=== PATIENT | female | born 1975 | race Caucasian/White ===

== ENCOUNTER 2018-08-30 13:55 | Emergency (ER) | payer SELFPAY ==
--- NOTE | 2018-08-30 14:48 | EDPHY ---
General Time Seen by Provider: 08/30/18 14:15 Narrative: CLINICAL IMPRESSION: Concussion following closed head injury, cervical strain ASSESSMENT/PLAN: 43-year-old otherwise healthy female presents to the emergency department with complaints of headache, confusion, neck pain, and amnesia following a closed head injury while snowboarding today. Accident was witnessed by her who reports she was traveling at a relatively high rate of speed towards the lift line, caught an edge, fell backwards directly onto her helmeted head, knocked the wind out of herself. She has had perseveration since the accident, continues to be confused, with amnesia to events before and after the accident and complains of headache. I did feel this patient had indications for CT head and C-spine however she has refused at this time. My recommendations for CT were reviewed with the patient and her . I had a long discussion with her regarding concussion, post concussive syndrome and 2nd impact syndrome. They were given plenty of time to ask questions. They prefer to be discharged home, monitor symptoms at home, follow-up with primary care, however I encouraged them to have a very low threshold for return to ED for worsening symptoms that were outlined in person and discharge papers. Patient has no clinical signs basilar skull fracture including raccoon eyes, hemotympanum, Castro sign. 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 No reported dizziness or vertigo, exam findings are otherwise reassuring. DIFFERENTIAL DX: Differential diagnosis for headache includes but not limited to concussion, post concussive syndrome, intracranial hemorrhage, subarachnoid hemorrhage, migraine headache, migraine varient headache, tension headache and infectious causes such as meningitis, pharyngitis and sinusitis. ED PROCEDURES: See lab and/or imaging results below CT head and c-spine recommended for the following indications: Patient with antegrade and retrograde posttraumatic amnesia AND and one of the followin. Headache 2. Short-term memory deficits (unable to tell me month, what happened with the trauma or how she got to hospital) 3. Dangerous mechanism of injury - high speed snowboarding crash with headache and neck pain. ED COURSE: 2:45 p.m.: I had a long discussion with the patient and her regarding CT indications given her mechanism of injury, the fact that she has headache, posttraumatic antegrade and retrograde amnesia,, and she has declined CT at this point. They prefer to go home, monitor symptoms, follow up with primary care, and will return for worsening symptoms that were detailed in person and discharge papers. Patient verbalizes understanding that I am unable to rule out intracranial hemorrhage, skull fracture and C-spine fracture without imaging. I did discuss in detail with her symptoms consistent with concussion as well as post concussive syndrome and 2nd impact syndromes. CHIEF COMPLAINT: Closed head injury HPI: 43-year-old female presents to the emergency department with her from [facility] where she was apparently riding a snowboard towards the lift line when she caught an edge and fell back flat on her back striking her head. She was helmeted. Her was behind her and witness the fall. He states she was going at a relatively fast rate of speed when she fell. She knocked the wind out of her. She did not have loss of consciousness but has been perseverating, repeating questions since the fall, and seems very confused. She is complaining of a headache. She cannot tell me what happened earlier in the day and does not remember the fall nor does she remember the trip to the hospital. No reports of dizziness, vertigo, acute vision or hearing change, tinnitus, or vomiting. She has some neck pain as well but no reports of upper extremity numbness, tingling or weakness. No history of recent closed head injury or prior TBI. She is not anticoagulated. No prior neck injury or surgery. She did not take anything for her symptoms prior to arrival PAST MEDICAL HISTORY: None reported See nurse/triage notes for additional history if applicable Pertinent Past Surgical History: None reported Family History: Noncontributory Social History: Otherwise healthy, , lives with her who is here with her REVIEW OF SYSTEMS: All other systems negative Constitutional: No fever, no chills, appetite change. Eyes: No discharge, vision change ENT: No sore throat, congestion, ear pain. Cardiovascular: No chest pain, no palpitations. Respiratory: No cough, no shortness of breath. Gastrointestinal: No abdominal pain, no vomiting, diarrhea. Musculoskeletal: No back pain, joint swelling, joint pain, myalgias. Skin: No rashes, color change. Neurological: Positive for headache, denies dizziness, weakness. PHYSICAL EXAM: General Appearance: Alert, oriented, appropriate, cooperative, perseverating, asking repetitive questions regarding the accident, tearful, VSS, no hypoxia. HEENT: TMs are clear bilaterally no perforation or FB, no injection, no evidence of serous or mucopurulent otitis. No hemotympanum or Castro sign Oropharynx clear is no erythema or exudates, no tonsillar hypertrophy or asymmetry. No clear rhinorrhea Dentition without abnormality. No malocclusion no palpable scalp defect or contusion Eyes: PERRLA, no acute vision change, nystagmus, swelling, discharge, pain or photosensitivity. Conjunctiva pink, no pallor or injection Neck: Supple, no lymphadenopathy, no midline pain, FROM, reproducible pain primarily to bilateral paraspinal regions radiating to bilateral trapezius, no meningismus. Respiratory: There are no retractions, lungs are clear to auscultation. No chest wall tenderness or rib pain Cardiac: Regular rate and rhythm, no murmurs or gallops. Gastrointestinal: Abdomen is soft, nontender, bowel sounds normal, no masses/ hernia, no rigidity, guarding or focal peritoneal findings. Neurological: Alert and oriented x 2, unable to tell me the correct month or year,, CN 2-12 grossly intact, normal gait no ataxia, DTR's intact, normal sensation and strength Skin: Warm, dry, no rashes, no nodules on palpation. Musculoskeletal: Extremities are symmetrical, full range of motion, no tenderness, deformity, swelling, or erythema. MEDICAL DECISION MAKING: Patient was seen independently. Secondary supervising physician at time of evaluation was Dr. Gayle . Diagnosis: Severe concussion, closed-head injury. New, requires workup Summary: See Assessment and Plan for summary of ED visit Independent visualization of images, tracing, or specimens: Patient refused imaging. Decision to obtain medical records or history from someone other than the patient: Patient's Review / Summarize previous medical records: None available Patient Progress: Stable. - History Smoking Status: Never smoked - Objective Vital Signs: Initial Vital Signs Temperature (C) 36.9 C 08/30/18 14:06 Heart Rate 80 08/30/18 14:06 Respiratory Rate 18 08/30/18 14:06 Blood Pressure 144/89 H 08/30/18 14:06 O2 Sat (%) 96 08/30/18 14:06 O2 Delivery Mode Room Air Allergies/Adverse Reactions: No Known Allergies Allergy (Unverified 08/30/18 14:08) Home Medications: Medication Instructions Recorded Vit27&Calcium/Iron/FA 1 each PO DAILY 08/29/12 [ Rx 1 Tablet (RX)] Medications Given: Discontinued Medications Acetaminophen (Tylenol) 1,000 mg PO EDNOW ONE Stop: 08/30/18 14:53 Last Admin: 08/30/18 15:22 Dose: 1,000 mg Departure - Departure Disposition: Home, Routine, Self-Care Clinical Impression: Concussion, Perseveration, Cervical muscle strain Condition: Fair Instructions: Concussion (ED), Post Concussion Syndrome (ED) Additional Instructions: DISCHARGE INSTRUCTIONS FROM YOUR DOCTOR Thank you for visiting our emergency department today. Please keep in mind that discharge from the emergency department does not mean that there is nothing wrong - it simply means that we have not identified an emergency condition that requires further evaluation or treatment in the hospital. You should always plan to follow up with primary care for re-evaluation of your condition in the next 2-3 days. If you have been referred to a specialist, please call as soon as possible (today or tomorrow) to schedule your follow up appointment at the appropriate time. [ YOU ARE BEING DIAGNOSED WITH A CONCUSSION. PLEASE FOLLOWUP WITH A PRIMARY CARE DOCTOR IN 24-48 HOURS. IF YOU DO NOT HAVE A PRIMARY CARE, A REFERRAL WAS GIVEN TONIGHT. PLEASE AVOID TV, COMPUTERS, TEXTING, VIDEO GAMES, SCREEN TIME AND CONTACT SPORTS UNTIL YOU ARE CLEARED BY A PRIMARY CARE. WE HAVE ALSO INCLUDED OUR GRADUAL RETURN TO PLAY PROTOCOL A GUIDELINE BUT DEFINITIVE RETURN TO ABOVE MENTIONED ACTIVITIES SHOULD COME FROM YOUR PCP. RETURN TO THE ER SOONER FOR WORSENING OR SEVERE HEADACHES, SEIZURES, ALTERED MENTAL STATUS, VOMITING, SEVERE GRADUAL ALAGSO-FR-IOEN PROTOCOL PATIENT MUST BE SYMPTOM FREE FOR 24 HOURS BEFORE PROGRESSING TO THE NEXT STEP. IF PATIENT HAS SYMPTOMS DURING STEP'S 2-6, STOP ACTIVITY AND RETURN PREVIOUS STEP. PATIENT CAN NOT PROGRESS TO NEXT STEP UNLESS CURRENT STEP CAN BE COMPLETED WITH OUT ANY SYMPTOMS (IE HEADACHE, DIZZINESS, CONFUSION...) BRIGHT LIGHTS, TV, COMPUTERS, IPAD'S, MUSIC, READING CAN TRIGGER OR WORSEN CONCUSSION SYMPTOMS THUS SHOULD BE AVOIDED OR USED IN MODERATION. NO CONTACT SPORTS UNTIL YOU ARE CLEARED BY YOUR PRIMARY CARE PHYSICIAN. STEP 1. NO SAME DAY RETURN TO PLAY, REST ONLY , DO NOT PROCEED TO STEP 2 UNTIL ALL SYMPTOMS HAVE RESOLVED STEP 2. LIGHT AEROBIC EXERCISE (IE WALKING, SWIMMING OR STATIONARY CYCLING), WHILE KEEPING INTENSITY < 70% MAX HEART RATE STEP 3. SPORT-SPECIFIC EXERCISE (IE SKATING DRILLS IN ICE HOCKEY-NO PASSING, RUNNING DRILLS IN SOCCER-NO PASSING), NO HEAD IMPACT ACTIVITIES STEP 4. NON-CONTACT TRAINING, WITH PROGRESSION TO MORE COMPLEX DRILLS (IE PASSING DRILLS) NO HEAD IMPACT ACTIVITIES STEP 5. FULL-CONTACT PRACTICE AFTER GETTING MEDICAL CLEARANCE STEP 6. RETURN TO GAME PLAY THIS WAS BASED FROM: CONSENSUS STATEMENT ON CONCUSSION IN SPORT: THE 4TH INTERNATIONAL CONFERENCE ON CONCUSSION IN SPORT [facility]. [place] J SPORTS MED. 2013;47(5):250- [phone] People present with illnesses and injuries in different ways, and it is always possible that we have missed something. You may always return for re-evaluation if symptoms worsen or if they are not improving or if you develop new/different symptoms. Again, thank you for choosing our emergency department. We hope that you feel better. Referrals: NONE *PRIMARY CARE P,. [Primary Care Provider] - As per Instructions Sergio Mar MD [Medical Doctor] - 1-2 days without fail
[2018-08-30] MEDS ORDERED: ACETAMINOPHEN 500 MG TAB PO ONE (14:52)
[2018-08-30 15:28] VITALS: BP 136/81
== END 2018-08-30 15:29 | disposition home or self-care (01) ==
DX: S06.0X0A Concussion without loss of consciousness, initial encounter (principal); S16.1XXA Strain of muscle, fascia and tendon at neck level, initial encounter; V00.311A Fall from snowboard, initial encounter; Y93.23 Activity, snow (alpine) (downhill) skiing, snowboarding, sledding, tobogganing and snow tubing; Y92.828 Other wilderness area as the place of occurrence of the external cause